=== PATIENT | male | born 1950 | race Caucasian/White ===

== ENCOUNTER 2016-11-18 10:57 | Inpatient (IN) | payer OTHER ==
[~2016-11-18] VITALS: Ht 182.9 cm; Wt 76.0 kg
[~2016-11-18 10:57] MED LIST: ANTACID650 MG PO; ASPIR 8181 M1 PO; ASPIRIN E.C.81 M1 PO; ASPIRIN EC325 MG PO; ASPIRIN325 MG PO; ASPIRIN81 M2 PO; Advair HFA 115/21 IH; Aspirin E.C. PO; DELTASONE10 MG PO; ENDOCET 5-3251 EACH PO; FLONASE16 G1 BOTH NARES; IMODIUM MS REL1 EACH PO; IMODIUM2 MG PO; K-TAB10 MEQ PO; KLOR-CON M2020 MEQ PO; LISINOPRIL2.5 MG PO; Levaquin PO; Lisinopril PO; METAMUCIL APP1 WAFER PO; METAMUCIL197.2 GM PO; MICRO-K,K-TAB,10 MEQ PO; POTASSIUM CHLO20 ME1 PO; SODIUM BICARBO325 MG PO; SPIRIVA1 INHALATI IH; Sodium Bicarbonate PO; THERAGRAN1 TABLET PO; TOBRAMYCIN; Tylenol Regular Stre PO; VITAMIN D1000 INTUN PO; VITAMIN D250000 UNIT PO; VITAMIN D400 INTUNI PO; XOPENEX1.25 MG/0. IH; ZESTRIL,PRINIV2.5 MG PO; Zestril,Prinivil PO; [UNRECOGNIZED DRUG - OTHER] PO
[2016-11-18 12:06] LABS: HEMATOCRIT 38.7 % (38.0-50.0); MCH 27.3 PG (29.0-34.0); MCHC 33.9 G/DL (30.0-36.0); MCV 80.6 FL (86-99); MEAN PLAT.VOLUME 11.5 uM^3 (9.0-12.4); PLATELET COUNT 321 K/uL (156-360); RBC DIS.WIDTH-CV 16.8 % (11.8-14.6); RBC DIS.WIDTH-SD 47.9 % (39-53); WHITE BLOOD COUNT 11.1 K/uL (4.1-10.2)
[2016-11-18 12:17] LABS: EOSINOPHIL (%) 1.1 % (0-5); EOSINOPHIL COUNT 0.1 K/uL (0-0.3); IMMATURE GRANULOCYTE (%) 0.4 % (0.0-0.7); IMMATURE GRANULOCYTE COUNT 0.4 K/uL; LYMPHOCYTE COUNT 1.2 K/uL (1.0-2.8); MONOCYTE (%) 9.2 % (3-12); NEUTROPHIL (%) 77.9 % (45-76); NEUTROPHIL COUNT 8.6 K/uL (1.8-6.4)
[2016-11-18 12:21] LABS: CHLORIDE 109 mEq/L (99-109); SODIUM 137 mEq/L (136-147)
[2016-11-18 12:23] LABS: GLUCOSE 86 mg/dL (70-99)
[2016-11-18 12:24] LABS: ANION GAP 9 MEQ/L (2-14)
[2016-11-18 12:25] LABS: TOTAL BILIRUBIN 0.7 mg/dL (0.0-1.0)
[2016-11-18 12:26] LABS: ALKALINE PHOSPHATASE 166 IU/L (3-129)
[2016-11-18 12:27] LABS: GFR ESTIMATE (CALCULATED) 46 mL/min/
[2016-11-18 12:28] LABS: UREA NITROGEN (BUN) 34 mg/dL (9-23)
[2016-11-18 12:29] LABS: INTER. NORMALIZED RATIO 1.1; PROTHROMBIN TIME 10.7 (9.2-11.2); PTT 34.5 (25-32)
[2016-11-18 12:37] LABS: TROP-I INTERPRETATION NEGATIVE; TROPONIN-I < 0.01 ng/mL (0.0-0.30)
[2016-11-18] MEDS ORDERED: ERGOCALCIF50000 UNIT PO (12:54)
[2016-11-18] MEDS ORDERED: ALBUTEROL2.5 MG/3 M IH (12:55)
[2016-11-18] MEDS ORDERED: INHALER IH (12:58)
[2016-11-18 14:44] LABS: ADD MIUA? NO; BILIRUBIN NEGATIVE; BLOOD NEGATIVE; COLOR YELLOW ((YELLOW)); GLUCOSE (STRIP) NEGATIVE; KETONES NEGATIVE; LEUKOCYTES NEGATIVE; NITRITE NEGATIVE; PROTEIN (STRIP) TRACE; SPECIFIC GRAVITY 1.013 (1.000-1.030); UCUL ADDED? NO
[2016-11-18 15:01] VITALS: BP 113/57
[2016-11-18 15:14] LABS: MAGNESIUM 1.9 mg/dL (1.3-2.7)
[2016-11-18 16:42] LABS: INTACT PARATHYROID HORMONE 25 pg/mL (10-69)
[2016-11-18 18:59] VITALS: BP 95/88
[2016-11-18 23:46] VITALS: BP 104/55
[2016-11-19 03:34] VITALS: BP 106/60
[2016-11-19 07:29] LABS: INTERNAL CONTROL VALID? YES
[2016-11-19 07:39] LABS: HEMATOCRIT 36.7 % (38.0-50.0); MCH 27.8 PG (29.0-34.0); MCHC 33.8 G/DL (30.0-36.0); MCV 82.3 FL (86-99); MEAN PLAT.VOLUME 12.2 uM^3 (9.0-12.4); PLATELET COUNT 336 K/uL (156-360); RBC DIS.WIDTH-CV 16.7 % (11.8-14.6); RBC DIS.WIDTH-SD 50.3 % (39-53); RED BLOOD COUNT 4.46 M/uL (4.00-5.50); WHITE BLOOD COUNT 11.3 K/uL (4.1-10.2)
[2016-11-19 07:48] LABS: EOSINOPHIL (%) 0 % (0-5); IMMATURE GRANULOCYTE (%) 0.4 % (0.0-0.7); LYMPHOCYTE COUNT 0.5 K/uL (1.0-2.8); MONOCYTE (%) 0.9 % (3-12); MONOCYTE COUNT 0.1 K/uL (0-0.8); NEUTROPHIL (%) 93.8 % (45-76); NEUTROPHIL COUNT 10.6 K/uL (1.8-6.4)
[2016-11-19 08:00] VITALS: BP 106/64
[2016-11-19 08:09] LABS: ALKALINE PHOSPHATASE 176 IU/L (3-129); ANION GAP 8 MEQ/L (2-14); CHLORIDE 112 MEQ/L (99-109); GFR ESTIMATE (CALCULATED) 43 mL/min/; MAGNESIUM 1.9 mg/dl (1.3-2.7); SAMPLE HEMOLYSIS CHECK 0; SAMPLE ICTERIC CHECK 0; SAMPLE LIPEMIA CHECK 0; SODIUM 138 MEQ/L (136-147); TOTAL BILIRUBIN 0.3 MG/DL (0.0-1.0); UREA NITROGEN (BUN) 31 mg/dL (9-23)
[2016-11-19 08:10] LABS: INTACT PARATHYROID HORMONE 27 pg/mL (10-69)
[2016-11-19 08:12] LABS: GLUCOSE 145 mg/dL (70-99); POTASSIUM 4.9 MEQ/L (3.7-5.4)
[2016-11-19 09:39] LABS: INFLUENZA A VIRAL ANTIGEN NEGATIVE; INFLUENZA B VIRAL ANTIGEN NEGATIVE
[2016-11-19 12:03] VITALS: BP 109/65
[2016-11-19 13:41] LABS: TYPE OF FLUID PLEURAL
[2016-11-19 14:05] LABS: BODY FLUID RBC'S < 1000 /MM^3 (0-100); BODY FLUID WBC'S 2458 /MM^3 (0-500)
[2016-11-19 14:41] LABS: BODY FLUID LDH 49 IU/L; BODY FLUID PROTEIN 3.1 G/DL
[2016-11-19 15:25] LABS: BODY FLUID EOSINOPHILS 0 % (0-25); MONO RAW COUNT 48; MONONUCLEAR WBC'S 24 %; POLY RAW COUNT 152; POLYNUCLEAR WBC'S 76 % (0-25)
[2016-11-19 17:19] VITALS: BP 98/57
[2016-11-19 18:04] LABS: C DIFF TOXIN NEGATIVE (NEGATIVE)
[2016-11-19 18:05] LABS: PROBE CHECK PASS; SPECIMEN PROCESSING CONTROL PASS
[2016-11-19 19:57] VITALS: BP 102/58
[2016-11-19 23:37] VITALS: BP 118/63
[2016-11-20 03:33] VITALS: BP 121/65
[2016-11-20 08:00] VITALS: BP 113/59
[2016-11-20 16:00] VITALS: BP 112/59
[2016-11-20 20:00] VITALS: BP 123/67
[2016-11-20 23:57] VITALS: BP 110/59
[2016-11-21 04:00] VITALS: BP 114/71
[2016-11-21 08:00] VITALS: BP 134/76
[2016-11-21 15:45] VITALS: BP 121/66
[2016-11-21 20:14] VITALS: BP 125/71
[2016-11-21 23:55] VITALS: BP 115/57
[2016-11-22 04:23] VITALS: BP 116/69
[2016-11-22 08:00] VITALS: BP 133/77
[2016-11-22 16:00] VITALS: BP 129/65
[2016-11-22 23:32] VITALS: BP 134/75
[2016-11-23 04:50] LABS: BODY FLUID PH 7.7 (())
[2016-11-23 07:55] VITALS: BP 115/63
[2016-11-23 15:18] VITALS: BP 99/75
[2016-11-23 19:21] VITALS: BP 134/78
[2016-11-23 23:26] VITALS: BP 139/72
[2016-11-24 07:58] LABS: HEMATOCRIT 40.2 % (38.0-50.0); MCH 26.8 PG (29.0-34.0); MCHC 32.8 G/DL (30.0-36.0); MCV 81.7 FL (86-99); MEAN PLAT.VOLUME 10.6 uM^3 (9.0-12.4); PLATELET COUNT 369 K/uL (156-360); RED BLOOD COUNT 4.92 M/uL (4.00-5.50); WHITE BLOOD COUNT 14.7 K/uL (4.1-10.2)
[2016-11-24 08:09] LABS: ANION GAP 7 MEQ/L (2-14); CHLORIDE 108 MEQ/L (99-109); GFR ESTIMATE (CALCULATED) 54 mL/min/; GLUCOSE 83 mg/dL (70-99); SAMPLE HEMOLYSIS CHECK 0; SAMPLE ICTERIC CHECK 0; SAMPLE LIPEMIA CHECK 0; SODIUM 135 MEQ/L (136-147); UREA NITROGEN (BUN) 32 mg/dL (9-23)
[2016-11-24 08:10] LABS: POTASSIUM 3.7 MEQ/L (3.7-5.4)
[2016-11-24 08:20] VITALS: BP 118/79
[2016-11-24] MEDS ORDERED: PREDNISONE20 MG PO (14:26)
[2016-11-24] MEDS ORDERED: PANTOPRAZOLE SO40 MG PO (14:26)
[2016-11-24] MEDS ORDERED: CEFTIN500 MG PO (14:27)
[2016-11-24 18:18] VITALS: BP 121/64
== END 2016-11-24 18:00 | disposition home or self-care (01) | DRG 166 ==
LOC: EME 10:57 → 2EAST 12:43 → EDOF 12:43 → 2EAST 14:50
PROVIDERS: Emergency Medicine; Internal Medicine; Internal Medicine Pulmonary Disease
DX: C34.92 Malignant neoplasm of unspecified part of left bronchus or lung (principal); J96.90 Respiratory failure, unspecified, unspecified whether with hypoxia or hypercapnia; J44.1 Chronic obstructive pulmonary disease with (acute) exacerbation; J18.9 Pneumonia, unspecified organism; E85.9 Amyloidosis, unspecified; J90 Pleural effusion, not elsewhere classified; N28.9 Disorder of kidney and ureter, unspecified; F17.210 Nicotine dependence, cigarettes, uncomplicated; I10 Essential (primary) hypertension; F17.200 Nicotine dependence, unspecified, uncomplicated; Z86.79 Personal history of other diseases of the circulatory system; E55.9 Vitamin D deficiency, unspecified; E53.8 Deficiency of other specified B group vitamins; M19.90 Unspecified osteoarthritis, unspecified site; R91.8 Other nonspecific abnormal finding of lung field
CPT/HCPCS: 70553; 71020; 80048; 80053; 81003; 82945; 83605; 83615 91; 83735; 83970; 83986 90; 84100; 84157; 84484; 85025; 85025 91; 85027; 85610; 85730; 87040; 87070; 87077; 87086; 87116; 87185; 87205; 87206; 87449; 87493; 87502; 88108; 88173; 88305; 88341 TC; 88342 TC; 89051; 93005; 94640; 94640 76; 94667; 94668; 94799; 99202; 99281; 99285; J0171; J0461; J0696; J2175; J2250; J2310; J2543; J2550; J2930; J3010; J3370; J7050; J7512

== ENCOUNTER 2016-12-22 11:20 | Day surgery (SDC) | payer OTHER ==
[~2016-12-22] VITALS: Ht 182.9 cm; Wt 73.4 kg
[~2016-12-22 11:20] MED LIST changes: +ALBUTEROL2.5 MG/3 M IH; +CEFTIN500 MG PO; +ERGOCALCIF50000 UNIT PO; +INHALER IH; +OXAYDO5 MG PO; +PANTOPRAZOLE SO40 MG PO; +PREDNISONE20 MG PO; +TYLENOL PM1 CAPLET PO
[2016-12-22 11:53] VITALS: BP 98/68
[2016-12-22 12:40] LABS: HEMATOCRIT 39.7 % (38.0-50.0); INTER. NORMALIZED RATIO 1.1; MCH 27.5 PG (29.0-34.0); MCHC 33.2 G/DL (30.0-36.0); MCV 82.7 FL (86-99); MEAN PLAT.VOLUME 10.8 uM^3 (9.0-12.4); PLATELET COUNT 425 K/uL (156-360); PROTHROMBIN TIME 10.7 (9.2-11.2); RBC DIS.WIDTH-CV 18.2 % (11.8-14.6); RBC DIS.WIDTH-SD 55.2 % (39-53); WHITE BLOOD COUNT 10.7 K/uL (4.1-10.2)
[2016-12-22 12:53] LABS: ANION GAP 10 MEQ/L (2-14); CHLORIDE 108 MEQ/L (99-109); POTASSIUM 3.4 MEQ/L (3.7-5.4); SAMPLE HEMOLYSIS CHECK 0; SAMPLE ICTERIC CHECK 0; SAMPLE LIPEMIA CHECK 0; SODIUM 141 MEQ/L (136-147); TOTAL BILIRUBIN 0.4 MG/DL (0.0-1.0)
[2016-12-22 12:59] LABS: ALKALINE PHOSPHATASE 115 IU/L (3-129); GFR ESTIMATE (CALCULATED) 49 mL/min/; GLUCOSE 85 mg/dL (70-99); UREA NITROGEN (BUN) 24 mg/dL (9-23)
[2016-12-22 13:12] LABS: EOSINOPHIL (%) 2.6 % (0-5); EOSINOPHIL COUNT 0.3 K/uL (0-0.3); IMMATURE GRANULOCYTE (%) 0.5 % (0.0-0.7); IMMATURE GRANULOCYTE COUNT 0.1 K/uL; LYMPHOCYTE COUNT 0.8 K/uL (1.0-2.8); MONOCYTE (%) 10.6 % (3-12); MONOCYTE COUNT 1.1 K/uL (0-0.8); NEUTROPHIL (%) 78.4 % (45-76); NEUTROPHIL COUNT 8.4 K/uL (1.8-6.4)
[2016-12-22 18:47] VITALS: BP 112/63
[2016-12-22 19:34] VITALS: BP 125/68
== END 2016-12-22 19:34 | disposition home or self-care (01) ==
LOC: SDC 11:20
PROVIDERS: Thoracic Surgery (Cardiothoracic Vascular Surgery)
DX: C34.90 Malignant neoplasm of unspecified part of unspecified bronchus or lung (principal); I10 Essential (primary) hypertension; J44.9 Chronic obstructive pulmonary disease, unspecified; Z86.73 Personal history of transient ischemic attack (TIA), and cerebral infarction without residual deficits
CPT/HCPCS: 71010; 80053; 85025; 85610; 86850; 86900; 86901; 88305; 88312; 94002; 94640; 94760; J0330; J0690; J1100; J2405; J2704; J2710; J3010

== ENCOUNTER 2016-12-29 16:11 | Inpatient (IN) | payer OTHER ==
[~2016-12-29] VITALS: Ht 182.9 cm; Wt 71.2 kg
[2016-12-29 16:54] LABS: HEMATOCRIT 42.1 % (38.0-50.0); MCH 26.3 PG (29.0-34.0); MCHC 32.3 G/DL (30.0-36.0); MCV 81.4 FL (86-99); MEAN PLAT.VOLUME 10.6 uM^3 (9.0-12.4); PLATELET COUNT 504 K/uL (156-360); RBC DIS.WIDTH-CV 18.9 % (11.8-14.6); RBC DIS.WIDTH-SD 55.3 % (39-53); RED BLOOD COUNT 5.17 M/uL (4.00-5.50); WHITE BLOOD COUNT 16.8 K/uL (4.1-10.2)
[2016-12-29 17:03] LABS: CHLORIDE 105 mEq/L (99-109); POTASSIUM 4.2 mEq/L (3.7-5.4); SODIUM 140 mEq/L (136-147)
[2016-12-29 17:04] LABS: GLUCOSE 108 mg/dL (70-99)
[2016-12-29 17:06] LABS: ANION GAP 8 MEQ/L (2-14)
[2016-12-29 17:08] LABS: GFR ESTIMATE (CALCULATED) 40 mL/min/
[2016-12-29 17:09] LABS: UREA NITROGEN (BUN) 29 mg/dL (9-23)
[2016-12-29 18:28] LABS: TROP-I INTERPRETATION NEGATIVE; TROPONIN-I < 0.01 ng/mL (0.0-0.30)
[2016-12-29 21:51] LABS: TROP-I INTERPRETATION NEGATIVE; TROPONIN-I < 0.01 ng/mL (0.0-0.30)
[2016-12-30] VITALS (7 sets, daily range): BP systolic 114–154; BP diastolic 60–98
[2016-12-30 04:32] LABS: HEMATOCRIT 35.3 % (38.0-50.0); MCH 26.5 PG (29.0-34.0); MCHC 32.3 G/DL (30.0-36.0); MCV 82.1 FL (86-99); MEAN PLAT.VOLUME 10.4 uM^3 (9.0-12.4); PLATELET COUNT 403 K/uL (156-360); RBC DIS.WIDTH-CV 18.8 % (11.8-14.6); RBC DIS.WIDTH-SD 55.4 % (39-53); WHITE BLOOD COUNT 13.6 K/uL (4.1-10.2)
[2016-12-30 04:36] LABS: CHLORIDE 111 mEq/L (99-109); POTASSIUM 3.4 mEq/L (3.7-5.4); SODIUM 140 mEq/L (136-147)
[2016-12-30 04:38] LABS: GLUCOSE 105 mg/dL (70-99)
[2016-12-30 04:40] LABS: ANION GAP 7 MEQ/L (2-14)
[2016-12-30 04:42] LABS: GFR ESTIMATE (CALCULATED) 43 mL/min/
[2016-12-30 04:43] LABS: UREA NITROGEN (BUN) 31 mg/dL (9-23)
[2016-12-30 04:46] LABS: TROP-I INTERPRETATION NEGATIVE; TROPONIN-I < 0.01 ng/mL (0.0-0.30)
[2016-12-30 12:09] LABS: TROP-I INTERPRETATION NEGATIVE; TROPONIN-I < 0.01 ng/mL (0.0-0.30)
[2016-12-30 15:58] LABS: C DIFF TOXIN NEGATIVE (NEGATIVE); PROBE CHECK PASS; SPECIMEN PROCESSING CONTROL PASS
[2016-12-30 17:16] LABS: MAGNESIUM 1.8 mg/dL (1.3-2.7)
[2016-12-30 20:52] LABS: ADD MIUA? YES; BILIRUBIN NEGATIVE; BLOOD NEGATIVE; COLOR STRAW ((YELLOW)); GLUCOSE (STRIP) NEGATIVE; KETONES NEGATIVE; LEUKOCYTES MODERATE; NITRITE NEGATIVE; PROTEIN (STRIP) NEGATIVE; SPECIFIC GRAVITY 1.008 (1.000-1.030); UROBILINOGEN 0.2 MG/DL (0.2-1.0)
[2016-12-30 21:11] LABS: TROP-I INTERPRETATION NEGATIVE; TROPONIN-I < 0.01 ng/mL (0.0-0.30)
[2016-12-30 21:22] LABS: EPITHELIAL CELLS 1+ /HPF; MUCUS 1+ /LPF; WHITE BLOOD CELLS 0-5 /HPF (0-5)
[2016-12-30 21:23] LABS: BACTERIA NONE SEEN /HPF; UCUL ADDED? NO
[2016-12-31 03:01] VITALS: BP 145/71
[2016-12-31 07:08] LABS: ANION GAP 9 MEQ/L (2-14); CHLORIDE 106 MEQ/L (99-109); GFR ESTIMATE (CALCULATED) 58 mL/min/; POTASSIUM 3.7 MEQ/L (3.7-5.4); SAMPLE HEMOLYSIS CHECK 0; SAMPLE ICTERIC CHECK 0; SAMPLE LIPEMIA CHECK 0; SODIUM 140 MEQ/L (136-147); UREA NITROGEN (BUN) 21 mg/dL (9-23)
[2016-12-31 07:09] LABS: GLUCOSE 74 mg/dL (70-99)
[2016-12-31 08:06] VITALS: BP 113/67
[2016-12-31 08:10] LABS: INTACT PARATHYROID HORMONE 20 pg/mL (10-69)
[2016-12-31 10:59] VITALS: BP 150/66
[2016-12-31 16:19] VITALS: BP 122/73
[2016-12-31 19:37] VITALS: BP 135/68
[2017-01-01 00:04] VITALS: BP 141/76
[2017-01-01 06:21] LABS: HEMATOCRIT 37.1 % (38.0-50.0); MCH 25.4 PG (29.0-34.0); MCHC 31.3 G/DL (30.0-36.0); MCV 81.4 FL (86-99); PLATELET COUNT 340 K/uL (156-360); RBC DIS.WIDTH-SD 53.1 % (39-53); RED BLOOD COUNT 4.56 M/uL (4.00-5.50); WHITE BLOOD COUNT 11.9 K/uL (4.1-10.2)
[2017-01-01 06:46] LABS: EOSINOPHIL (%) 0.7 % (0-5); EOSINOPHIL COUNT 0.1 K/uL (0-0.3); IMMATURE GRANULOCYTE (%) 0.7 % (0.0-0.7); IMMATURE GRANULOCYTE COUNT 0.1 K/uL; LYMPHOCYTE COUNT 0.4 K/uL (1.0-2.8); MONOCYTE (%) 5.5 % (3-12); MONOCYTE COUNT 0.7 K/uL (0-0.8); NEUTROPHIL (%) 89.3 % (45-76); NEUTROPHIL COUNT 10.6 K/uL (1.8-6.4)
[2017-01-01 08:35] VITALS: BP 113/59
[2017-01-01 10:57] LABS: ANION GAP 8 MEQ/L (2-14); CHLORIDE 108 MEQ/L (99-109); POTASSIUM 3.6 MEQ/L (3.7-5.4); SAMPLE HEMOLYSIS CHECK 0; SAMPLE ICTERIC CHECK 0; SAMPLE LIPEMIA CHECK 0; SODIUM 138 MEQ/L (136-147)
[2017-01-01 11:03] LABS: GFR ESTIMATE (CALCULATED) > 59 mL/min/; GLUCOSE 83 mg/dL (70-99); UREA NITROGEN (BUN) 16 mg/dL (9-23)
[2017-01-01 16:32] VITALS: BP 118/64
[2017-01-01 23:27] VITALS: BP 98/59
[2017-01-02 06:40] LABS: ANION GAP 8 MEQ/L (2-14); CHLORIDE 107 MEQ/L (99-109); GFR ESTIMATE (CALCULATED) 58 mL/min/; GLUCOSE 93 mg/dL (70-99); POTASSIUM 3.5 MEQ/L (3.7-5.4); SAMPLE HEMOLYSIS CHECK 0; SAMPLE ICTERIC CHECK 0; SAMPLE LIPEMIA CHECK 0; SODIUM 137 MEQ/L (136-147); UREA NITROGEN (BUN) 19 mg/dL (9-23)
[2017-01-02 07:25] VITALS: BP 118/64
[2017-01-02] MEDS ORDERED: OXAYDO5 MG PO (13:32)
[2017-01-02] MEDS ORDERED: CEFTIN250 MG PO (13:32)
== END 2017-01-02 14:30 | disposition home or self-care (01) | DRG 190 ==
LOC: EME 16:11 → 5EAST 21:33 → EDOF 21:33 → 5EAST 12-30 16:24
PROVIDERS: Internal Medicine; Physician Assistant
DX: J44.0 Chronic obstructive pulmonary disease with (acute) lower respiratory infection (principal); J18.9 Pneumonia, unspecified organism; C34.32 Malignant neoplasm of lower lobe, left bronchus or lung; I95.9 Hypotension, unspecified; J44.1 Chronic obstructive pulmonary disease with (acute) exacerbation; J90 Pleural effusion, not elsewhere classified; R94.31 Abnormal electrocardiogram [ECG] [EKG]; G81.94 Hemiplegia, unspecified affecting left nondominant side; E85.4 Organ-limited amyloidosis; E87.2 Acidosis; E87.6 Hypokalemia; E83.52 Hypercalcemia; E55.9 Vitamin D deficiency, unspecified; E53.8 Deficiency of other specified B group vitamins; N03.1 Chronic nephritic syndrome with focal and segmental glomerular lesions; D75.1 Secondary polycythemia; I12.9 Hypertensive chronic kidney disease with stage 1 through stage 4 chronic kidney disease, or unspecified chronic kidney disease; N18.9 Chronic kidney disease, unspecified; I65.29 Occlusion and stenosis of unspecified carotid artery; I73.9 Peripheral vascular disease, unspecified; K21.9 Gastro-esophageal reflux disease without esophagitis; M19.90 Unspecified osteoarthritis, unspecified site; F17.210 Nicotine dependence, cigarettes, uncomplicated; F32.9 Major depressive disorder, single episode, unspecified; Z86.711 Personal history of pulmonary embolism; Z86.73 Personal history of transient ischemic attack (TIA), and cerebral infarction without residual deficits; Z90.49 Acquired absence of other specified parts of digestive tract; Z85.038 Personal history of other malignant neoplasm of large intestine
CPT/HCPCS: 70450; 70551; 71020; 80048; 81003; 82306; 82310; 82330; 82652 90; 83605; 83735; 83970; 84484; 85025; 85027; 87040; 87070; 87205; 87493; 93005; 94640; 94640 76; 94799; 99202; 99281; 99285; J0696; J3489; J7030; J7050; J7120